=== PATIENT | male | born 1950 | race Caucasian/White ===

== ENCOUNTER 2019-04-02 02:27 | Observation (INO) ==
[2019-04-02] MEDS ORDERED: Naloxone 0.4 MG/ML INJ IVP PRN (03:38)
[2019-04-02] MEDS: 0.9 % Sodium Chloride 1,000 ML IVC SCH ×2 (03:54→13:44)
[2019-04-02] MEDS: Nicotine 21 MG PATCH.TD24 TD SCH (03:55)
[2019-04-02 04:40] LABS: Hematocrit 39.9 % (37.5-50.1); Hemoglobin 13.7 g/dL (12.9-16.9); Mean Corpuscular HGB Conc 34.3 g/dL (31.6-35.5); Mean Corpuscular Hemoglobin 30.4 pg (28.0-33.3); Mean Corpuscular Volume 88.5 fL (83.0-100.0); Mean Platelet Volume 11.1 fL (9.4-12.4); Platelet Count 218 K/mcL (140-400); Red Blood Count 4.51 M/mcL (4.19-5.50); Red Cell Distribution Width 13.2 % (11.5-14.5); White Blood Count 8.8 K/mcL (4.3-11.1)
[2019-04-02 04:42] LABS: INR 1.3; Prothrombin Time 14.3 Seconds (9.4-12.1)
[2019-04-02 05:02] LABS: Alanine Aminotransferase 28 Units/L (7-52); Albumin 4.1 g/dL (3.5-5.7); Albumin/Globulin Ratio 1.5 (1.1-2.2); Alkaline Phosphatase 78 Units/L (34-104); Aspartate Amino Transferase 19 Units/L (13-39); BUN/Creatinine Ratio 19 (6-26); Bilirubin,Total 0.4 mg/dL (0.3-1.0); Blood Urea Nitrogen 19 mg/dL (8-23); Calcium 8.8 mg/dL (8.6-10.3); Carbon Dioxide 20 mEq/L (23-29); Chloride 110 mEq/L (98-107); Globulin 2.7 g/dL (2.4-3.5); Glucose 94 mg/dL (70-105); Magnesium 2.1 mg/dL (1.6-2.6); Osmolality,Calculated 292 (280-300); Phosphorous 3.2 mg/dL (2.7-4.5); Potassium 3.9 mEq/L (3.5-5.1); Sodium 140 mEq/L (136-145); Total Protein 6.8 g/dL (6.4-8.9); eGFR For African Americans > 60 (> 60); eGFR For Non-African Americans > 60 (> 60)
[2019-04-02 05:03] LABS: Troponin I < 0.03 ng/mL (< 0.04)
[2019-04-02] MEDS: *HR* Rivaroxaban 10 MG TABLET PO SCH (08:20)
[2019-04-02] MEDS: Aspirin Enteric Coated 81 MG Tablet PO SCH (09:07)
[2019-04-02] MEDS: *HR* Amiodarone 200 MG TABLET PO SCH ×2 (09:07→19:51)
[2019-04-02] MEDS ORDERED: Acetaminophen 325 MG TABLET PO PRN (10:17)
[2019-04-02] MEDS ORDERED: Perflutren Lipid Microsphere 1.3 ML in 0.9 % Sodium Chloride 8.7 ML IVP ONE (11:27)
[2019-04-03] MEDS: Aspirin Enteric Coated 81 MG Tablet PO SCH (09:03)
[2019-04-03] MEDS: Nicotine 21 MG PATCH.TD24 TD SCH (09:03)
[2019-04-03] MEDS: *HR* Rivaroxaban 10 MG TABLET PO SCH (09:03)
[2019-04-03] MEDS: *HR* Amiodarone 200 MG TABLET PO SCH (09:03)
[2019-04-03 10:52] VITALS: BP 129/76
== END 2019-04-03 12:50 | disposition home or self-care (01) ==
LOC: 3BNU → SUATTDRO 02:27
PROVIDERS: ADMIT Internal Medicine; ATTEND Internal Medicine